=== PATIENT | female | born 1955 | race Caucasian/White ===

== ENCOUNTER 2017-07-31 21:46 | Emergency (ER) | payer MEDICARE, MEDICAID, SELFPAY ==
[2017-07-31 22:08] VITALS: BP 173/90; PULSE 103; RESP 18; TEMP 36.9; O2SAT 98
[2017-07-31 22:57] VITALS: PULSE 80
--- NOTE | 2017-08-01 00:01 | ED.LOWEXIN ---
HPI - Extremity Injury (Lower) General Chief Complaint: Extremity Injury, Lower Stated Complaint: LEFT FOOT TOE INJURY Time Seen by Provider: 07/31/17 21:55 Source: patient Mode of arrival: ambulatory Limitations: no limitations History of Present Illness HPI Narrative: Pleasant 62-year-old female with history of leukemia and type 2 diabetes presents to the emergency department with a laceration on the dorsum of her left great toe. She has a history of peripheral neuropathy and is unclear exactly how she cut her toe. She denies other injury. Her tetanus is current MD complaint: foot injury Onset (ago): hour(s) Type of Injury: laceration Place: home Severity: mild Related Data Previous Rx's Medication Instructions Recorded Diabetic Shoes ea TD QDAY #1 02/21/16 albuterol sulfate [Ventolin HFA] 0 puff INH Q4HP PRN #1 ea 07/22/16 simvastatin 20 mg PO QDAY #90 tab 08/07/16 indomethacin 25 mg PO BIDCC #30 cap 09/18/16 lisinopril 10 mg PO QDAY #90 tab 11/10/16 Glucose: Test Strips str SEE INSTRUCTIONS #200 12/24/16 meloxicam [Mobic] 15 mg PO BID #180 tab 02/24/17 metformin 1,000 mg PO BID #60 tab 04/05/17 gabapentin 300 mg capsule 300 mg PO BID #60 cap 07/20/17 glipizide 5 mg tablet 5 mg PO BID #60 tab 07/20/17 cephalexin [Keflex] 500 mg PO QID 7 Days #28 cap 07/31/17 Allergies Allergy/AdvReac Type Severity Reaction Status Date / Time latex Allergy Severe RASH Unverified 07/31/17 22:14 codeine Allergy Mild HEADACHE Unverified 07/31/17 22:14 adhesive AdvReac Mild IRRITATING, Unverified 07/31/17 22:14 USE PAPER TAPE hydrocodone AdvReac Mild NAUSEA, Unverified 07/31/17 22:14 HEADACHE tramadol AdvReac Mild NAUSEA, Unverified 07/31/17 22:14 HEADACHE cephalexin [CEPHALEXIN] AdvReac Unknown SEVERE Unverified 07/31/17 22:14 DIAHHREA oxycodone AdvReac Unknown NAUSEA/VOMI Unverified 07/31/17 22:14 TING novacaine Allergy Intermediate doen not Uncoded 07/31/17 22:14 work Review of Systems Review of Systems All systems reviewed & are unremarkable except as noted in HPI and below Constitutional Denies chills, Denies fever(s), Denies lethargy and Denies weakness Eyes Denies change in vision, Denies eye discharge, Denies irritation and Denies loss of vision ENT Ears, Nose, Mouth, and Throat: Denies change in voice, Denies neck pain and Denies sore throat Cardiovascular Denies chest pain, Denies irregular heart rhythm, Denies lightheadedness, Denies palpitations, Denies dyspnea, Denies dyspnea on exertion and Denies orthopnea Respiratory Denies cough, Denies dyspnea, Denies dyspnea on exertion and Denies wheezing Gastrointestinal Gastrointestinal: Denies abdominal pain, Denies change in bowel habits, Denies diarrhea, Denies nausea and Denies vomiting Genitourinary Denies hematuria, Denies flank pain, Denies urinary incontinence and Denies urinary urgency Musculoskeletal Denies joint swelling, Denies limited range of motion, Denies neck pain and Denies radiating pain into limb Integumentary/Breasts Denies pruritus, Denies erythema, Denies rash and Reports wounds Neurologic Denies confusion, Denies loss of vision and Denies weakness Psychiatric Denies anxiety, Denies confusion, Denies depression, Denies homicidal ideation and Denies suicidal ideation Endocrine Denies palpitations Hematologic/Lymphatic Denies easy bruising Allergic/Immunologic Denies wheezing PFSH Surgical History History of tonsillectomy Family History Mother Cancer Social History Smoking Status: Never smoker Exam Initial Vital Signs Initial Vital Signs: Vital Signs Temperature 98.5 F 07/31/17 22:08 Pulse Rate 103 H 07/31/17 22:08 Respiratory Rate 18 07/31/17 22:08 Blood Pressure 173/90 H 07/31/17 22:08 Pulse Oximetry 98 07/31/17 22:08 Const General: cooperative and well developed Nutritional Appearance: well nourished Orientation: alert, awake, oriented x3 and not confused HENIA Head: normocephalic and atraumatic Ears: external ears normal and TM's normal bilaterally Nose: external nose normal and No nasal discharge Face and sinus: sinuses nontender, face symmetric, no sinus tenderness and No dry mucous membranes Mouth: oral mucosae normal and moist mucous membranes Teeth and gingiva: dentition normal Throat: tonsils normal and uvula midline Eyes General: appearance normal, both eyes and all related structures Eyelids: eyelids normal Conjunctivae: conjunctivae normal Sclera: sclerae normal Pupils: PERRL EOM: EOM intact bilaterally Resp Effort & Inspection: normal respiratory effort, able to speak in complete sentences, no respiratory distress and no use of accessory muscles Auscultation: clear to auscultation bilaterally, no rales, no rhonchi and no wheezes GI Inspection: non-distended Palpation: soft, no hepatosplenomegaly, No guarding, No pulsatile mass and No tender Auscultation: normal bowel sounds Skin General: no rashes or lesions noted, No jaundice and No petechiae Trauma: laceration (On dorsum of left great toe. Closed, isolated neurovascularly intact. Full range of motion. 2 cm) Procedures Joint Aspiration/Injection Laceration 1: Site: lower extremity Side (If applicable): left Size (cm): 2 Description: linear Depth: simple, single layer Local Anesthetic: lidocaine 1% Amount of anesthesia used (mL): 3 Pre-repair: wound explored Skin layer closed with: nylon Size (cm): 4-0 Number of sutures: 3 Technique: simple, interrupted Course Orders Ordered: Discontinued Medications Cephalexin HCl (Keflex) 500 mg PO NOW ONE Stop: 07/31/17 23:53 Last Admin: 08/01/17 00:16 Dose: 500 mg Vital Signs - 8 hr 07/31/17 22:08 07/31/17 22:57 08/01/17 00:03 Temperature 98.5 F Pulse Rate 103 H 82 Pulse Rate [Left Dorsalis Pedis] 80 Respiratory Rate 18 18 Blood Pressure 173/90 H Blood Pressure [Left Wrist] 149/79 H Pulse Oximetry 98 96 Discharge Plan Departure Patient Disposition: Home, Self-Care Clinical Impression: Laceration Discharge Date/Time: 08/01/17 00:22 Interventions: ED Discharge Assessment Last Done: 08/01/17 00:21 Instructions: DI for Laceration Repair Activity Restrictions/Additional Instructions: Please keep the wound clean and dry to the best of your ability. Please monitor for signs of infection such as redness to the skin or increasing pain. Have the sutures removed by your doctor in about 7 days. If you are unable to get into your doctor, we would be happy to remove the sutures in that same timeframe. Your prescription was electronically transmitted to [facility] and [facility] is at your request Prescriptions: New cephalexin [Keflex] 500 mg capsule 500 mg PO QID 7 Days Qty: 28 RF: 0 No Action Diabetic Shoes TD QDAY Qty: 1 RF: 1 albuterol sulfate [Ventolin HFA] 90 MCG/PUFF HFA aerosol inhaler INH Q4HP PRNQty: 1 RF: 2 simvastatin 20 MG tablet 20 mg PO QDAY Qty: 90 RF: 3 indomethacin 25 MG capsule 25 mg PO BIDCC Qty: 30 RF: 0 lisinopril 10 MG tablet 10 mg PO QDAY Qty: 90 RF: 2 Glucose: Test Strips SEE INSTRUCTIONS Qty: 200 RF: 5 meloxicam [Mobic] 15 MG tablet 15 mg PO BID Qty: 180 RF: 3 metformin 1,000 MG tablet 1,000 mg PO BID Qty: 60 RF: 11 gabapentin [Neurontin] 300 mg capsule 300 mg PO BID Qty: 60 RF: 0 glipizide 5 mg tablet 5 mg PO BID Qty: 60 RF: 0 Referrals: Malou Calvin MD [Primary Care Provider] -
[2017-08-01 00:03] VITALS: BP 149/79; PULSE 82; RESP 18; O2SAT 96
[2017-08-01] MEDS: cephALEXin 250 MG CAPSULE 500 MG PO (00:16)
== END 2017-08-01 00:22 | disposition home or self-care (01) ==
PROVIDERS: Emergency Provider Emergency Medicine; PCP Family Medicine
DX: S91.312A Laceration without foreign body, left foot, initial encounter (principal)
CPT/HCPCS: 12001; 99283

== ENCOUNTER → 2017-08-30 10:29 | Outpatient (CLI) | payer MEDICARE, MEDICAID, SELFPAY ==
[2017-08-30 12:39] LABS: Alanine Aminotransferase 29 IU/L (9-52); Albumin 4.2 g/dL (3.5-5.0); Albumin Globulin Ratio 1.4 (1.0-2.8); Alkaline Phosphatase 81 U/L (38-126); Aspartate Aminotransferase 28 IU/L (14-36); BUN Creatinine Ratio 18.8 (6-22); Bilirubin Total 0.4 mg/dL (0.2-1.3); Blood Urea Nitrogen 15 mg/dL (7-17); Calcium 9.4 mg/dL (8.4-10.2); Carbon Dioxide 26 mmol/L (22-32); Chloride 92 mmol/L (98-107); Cholesterol 123 mg/dL (140-199); Estimated Glomerular Filt Rate > 60.0 mL/min (>60); Globulin 2.9 g/dL (1.7-4.1); Glucose 187 mg/dL (80-110); HDL Cholesterol 38 mg/dL (40-60); HEMOLYSIS < 15 (0-50); LDL Cholesterol Calculated 58 mg/dL (<100); Sodium 129 mmol/L (137-145); Total Protein 7.1 g/dL (6.3-8.2); Triglycerides 133 mg/dL (35-150)
[2017-08-30 12:43] LABS: Potassium 5.4 mmol/L (3.4-5.1)
[2017-08-30 15:29] LABS: Hemoglobin A1C% w Est Avg Glu 6.6 % (4.0-6.0)
== END ==
PROVIDERS: PCP Family Medicine; Visit Provider Internal Medicine
DX: E11.40 Type 2 diabetes mellitus with diabetic neuropathy, unspecified (principal)
CPT/HCPCS: 36415; 80053; 80061; 83036; 84443

== ENCOUNTER → 2017-10-08 10:22 | Outpatient (CLI) | payer MEDICARE, MEDICAID, SELFPAY ==
[2017-10-08 11:40] LABS: Hematocrit 38.8 % (36-46); Hemoglobin 12.4 g/dL (12.0-16.0); Mean Corpuscular Hemoglobin 26.2 PG (26-34); Mean Corpuscular Volume 81.9 fL (80-100); Platelet Count 408 X10^3/uL (150-400); Red Blood Cell Count 4.74 X10^6/uL (4.0-5.2); Red Cell Distribution Width 14.5 % (11.6-14.8); White Blood Cell Count 28.3 X10^3/uL (4.5-11.0)
[2017-10-08 11:41] LABS: Add Manual Diff / Slide Review YES
[2017-10-08 11:56] LABS: Alanine Aminotransferase 29 IU/L (9-52); Albumin 4.3 g/dL (3.5-5.0); Albumin Globulin Ratio 1.5 (1.0-2.8); Alkaline Phosphatase 83 U/L (38-126); Aspartate Aminotransferase 28 IU/L (14-36); Bilirubin Total 0.5 mg/dL (0.2-1.3); Blood Urea Nitrogen 16 mg/dL (7-17); Calcium 9.4 mg/dL (8.4-10.2); Carbon Dioxide 26 mmol/L (22-32); Chloride 95 mmol/L (98-107); Estimated Glomerular Filt Rate 55.8 mL/min (>60); Globulin 2.8 g/dL (1.7-4.1); Glucose 167 mg/dL (80-110); HEMOLYSIS < 15 (0-50); Potassium 4.8 mmol/L (3.4-5.1); Sodium 134 mmol/L (137-145); Total Protein 7.1 g/dL (6.3-8.2)
[2017-10-08 12:20] LABS: Neutrophils Absolute Manual 9339 /uL (3000-5900); Total Cells Counted 100
== END ==
PROVIDERS: PCP Family Medicine; Visit Provider Nurse Practitioner Gerontology
DX: C91.90 Lymphoid leukemia, unspecified not having achieved remission (principal)
CPT/HCPCS: 36415; 80053; 85025

== ENCOUNTER → 2018-03-15 11:25 | Outpatient (CLI) | payer MEDICARE, SELFPAY ==
[2018-03-15 12:08] LABS: Hematocrit 40.7 % (36-46); Hemoglobin 12.5 g/dL (12.0-16.0); Mean Corpuscular HGB Conc 30.7 % (30-36); Mean Corpuscular Volume 78.3 fL (80-100); Platelet Count 446 X10^3/uL (150-400); Red Blood Cell Count 5.19 X10^6/uL (4.0-5.2); Red Cell Distribution Width 16.1 % (11.6-14.8)
[2018-03-15 12:17] LABS: Hemoglobin A1C% w Est Avg Glu 7.2 % (4.0-6.0)
[2018-03-15 12:19] LABS: Add Manual Diff / Slide Review YES; White Blood Cell Count 76.2 X10^3/uL (4.5-11.0)
[2018-03-15 12:23] LABS: Alanine Aminotransferase 17 IU/L (9-52); Albumin 4.4 g/dL (3.5-5.0); Albumin Globulin Ratio 1.3 (1.0-2.8); Alkaline Phosphatase 99 U/L (38-126); Amylase 47 U/L (30-110); Aspartate Aminotransferase 28 IU/L (14-36); Bilirubin Total 0.4 mg/dL (0.2-1.3); Blood Urea Nitrogen 9 mg/dL (7-17); Calcium 9.3 mg/dL (8.4-10.2); Carbon Dioxide 25 mmol/L (22-32); Chloride 96 mmol/L (98-107); Estimated Glomerular Filt Rate > 60.0 mL/min (>60); Globulin 3.3 g/dL (1.7-4.1); Glucose 164 mg/dL (80-110); HEMOLYSIS < 15 (0-50); Potassium 4.6 mmol/L (3.4-5.1); Sodium 134 mmol/L (137-145); Total Protein 7.7 g/dL (6.3-8.2)
[2018-03-15 12:34] LABS: Anisocytosis 2+; Neutrophils Absolute Manual 8382 /uL (3000-5900); Poikilocytosis 1+; Total Cells Counted 100
[2018-03-15 12:40] LABS: Vitamin D 25 Hydroxy (D3) 16.9 ng/mL (30.0-100.0)
== END ==
PROVIDERS: PCP Student in an Organized Health Care Education/Training Program; Visit Provider Student in an Organized Health Care Education/Training Program
DX: C91.90 Lymphoid leukemia, unspecified not having achieved remission (principal); E11.9 Type 2 diabetes mellitus without complications; E55.9 Vitamin D deficiency, unspecified
CPT/HCPCS: 36415; 80053; 82150; 82306; 83036; 85025

== ENCOUNTER → 2018-05-09 14:21 | Oncology outpatient (ONC) | payer MEDICARE, SELFPAY ==
[2017-10-11 14:38] VITALS: BP 122/76; PULSE 90; RESP 18; TEMP 36.1; O2SAT 94
--- NOTE | 2017-10-11 14:43 | ONC.APRN.PN ---
Assessment and Plan (1) Chronic lymphocytic leukemia Onset Date: 11/26/14 Current visit: No Status: None 10/11/17 14:45 The patient is a 62 year old Female who is being seen in the clinic 10/11/2017. She carries a diagnosis of CLL with deletion 13q. Patient is status post first line therapy completed in February 2016 and presents today for her 1 year interval follow-up. Reassuringly on exam today she has no clinical signs or symptoms of disease recurrence. CBC does demonstrate an elevated white count at 28.3, patient's white count historically does remain elevated trending 12-13. However, the rest of her blood work looks very good specifically no anemia hemoglobin 12.4 hematocrit 38.8. Platelets within normal limits. Smear pending at time of dictation, I will follow. LDH not tested, has not been elevated in the past. She has no hepatosplenomegaly. RTC in 6 months for provider visit cbc cmp LDH. 10/11/17 14:48 - Time Spent with Patient 30 minutes PN -Subjective Interval history: The patient is a 62 year old Female who is being seen in the clinic 10/11/2017. She carries a diagnosis of CLL with deletion 13q. Patient is status post first line therapy completed in February 2016 and presents today for her 1 year interval follow-up. Since I saw her last, she has done well overall. Her only complaint is chronic lower back pain which is unchanged in character or location. She otherwise denies any recent illnesses, residual side effects of therapy. Patient denies any new fevers, chills, or night sweats. No change in activity tolerance. No unexplained weight loss. No new lumps or bumps. No new pain. Past Medical History The patient's past medical history is significant for: 1. CLL Diagnosis: 02/17/2013. Peripheral blood flow cytometry. Reporting an abnormal B cell population composed 44% of total white cells. IHC consistent with a B cell population: Positive for CD19, CD20, and CD2 (dim, subset of B cells). CD5. Negative for FMC7. 08/11/2013: Excisional biopsy lymph node. Pathology reporting atypical lymphoid infiltrate with IHC positive for CD20, CD23 (subset), Ki-67-12%. 06/09/2013: Bone Marrow Biopsy with Aspirate: Cellularity ~ 80-85%. Atypical lymphoid cells ~40%. Reticulin fibrosis 1+. Flow cytometry confirming abnormal mature B cell population with lambda surface light chain restriction. Low CD20, high CD5. Abnormal B cells representing 87% of lymphocytes and 36% of total viable leukocytes. Cytogenetics confirming deletion 13q. Addition of 3 and 7 also identified. FISH panel negative. Clinical Staging Workup: 2012. Clincal presention. Palpable adenopathy, right side of neck. Baseline WBC - 36,000 02/13/2013: CT Chest Abdomen, Pelvis: Bilateral inguinal and axillary adenopathy. Pathologically enlarged lymph nodes in the retroperitoneal, mesenteric, and mediastinal stations. Complex lobulated lesion right adrenal gland with associated calcifications. Spleen and liver normal size. Prognosis: GILL stage I Binet Stage B Treatment Recommendations: August-February 2016. Bendamustine and Rituxumab x 6 cycles. 06/12/2014. Hep B core AB: nonreactive. Hep B surface Ag: negative. Surveillence: 05/27/2015. Peripheral Flow Cytometry. No immunophenotypic evidence for CLL detected. 2. Diabetes type 2. 3. Hypertension. 4. Hyperlipidemia. 5. Chronic hyponatremia with her baseline sodium levels in the 130 range. Evaluation currently underway. 6. Anxiety. 7. Degenerative joint disease with chronic lower back pain. Results - Imaging Additional studies: Procedures Biopsy of lymphatic structure (08/11/13) Insertion of totally implantable vascular access device [VAD] (07/17/14) Other local excision or destruction of lesion or tissue of skin and subcutaneous tissue (08/11/13) Other soft tissue x-ray of chest wall (07/17/14) Home Medications and Allergies Home Medications Medication Instructions Recorded Confirmed Type Diabetic Shoes ea TD QDAY #1 02/21/16 08/30/17 Rx meloxicam [Mobic] 15 mg PO BID #180 tab 02/24/17 08/30/17 Rx metformin 1,000 mg PO BID #60 tab 04/05/17 08/30/17 Rx simvastatin 20 mg tablet 20 mg PO QDAY #90 tab 08/24/17 08/30/17 Rx fluticasone furoate 100 1 inhalation INHALATION DAILY #30 08/30/17 Rx mcg/actuation blister powder for each inhalation Glucose: Test Strips #1 ea 09/06/17 Rx fluconazole 150 mg tablet 150 mg PO ONCE #2 tab 09/30/17 Rx gabapentin 300 mg capsule 300 mg PO BID #60 cap 10/04/17 Rx canagliflozin 100 mg tablet 100 mg PO QAM #30 tab 10/11/17 Rx fluticasone furoate [Arnuity 1 inh INHALATION DAILY 10/11/17 10/11/17 History Ellipta] Allergies Allergy/AdvReac Type Severity Reaction Status Date / Time latex Allergy Severe RASH Verified 08/30/17 09:25 codeine Allergy Mild HEADACHE Verified 08/30/17 09:25 adhesive AdvReac Mild IRRITATING, Verified 08/30/17 09:25 USE PAPER TAPE hydrocodone AdvReac Mild NAUSEA, Verified 08/30/17 09:25 HEADACHE tramadol AdvReac Mild NAUSEA, Verified 08/30/17 09:25 HEADACHE cephalexin [CEPHALEXIN] AdvReac Unknown SEVERE Verified 08/30/17 09:25 DIAHHREA oxycodone AdvReac Unknown NAUSEA/VOMI Verified 08/30/17 09:25 TING novacaine Allergy Intermediate doen not Uncoded 08/30/17 09:25 work Exam Vital signs: Last Vital Signs Temp 97.0 F L 10/11/17 14:38 Pulse 90 10/11/17 14:38 Resp 18 10/11/17 14:38 BP 122/76 H 10/11/17 14:38 Pulse Ox 94 10/11/17 14:38 - Constitutional positive no acute distress, positive obese - Routine HEENT Exam Head: Present: normocephalic, atraumatic Eye: Present: conjunctivae pink. Absent: conjunctival icterus, scleral injection ENT: Present: mucous membranes moist, oropharynx clear - Routine Neck Exam Present: supple. Absent: lymphadenopathy - Routine Chest/Breast/Axilla Exam Axillae: Absent: lymphadenopathy, mass, tenderness - Routine Respiratory Exam Present: Clear to auscultation bilaterally. Absent: rales, rhonchi, wheezes - Routine Cardiovascular Exam Present: RRR, S1, S2. Absent: murmur, gallop, rubs, JVD - Routine Abdominal Exam Present: soft, normoactive bowel sounds. Absent: tenderness, distended, organomegaly, mass - Routine Extremities Exam Absent: edema, calf tenderness - Routine Skin Exam Present: intact, normal turgor. Absent: petechiae, rash - Routine Neurological Exam Present: alert, oriented X3 - Routine Psychiatric Exam Present: normal affect
--- NOTE | 2018-03-23 13:39 | PC.NURSE ---
Pt called stating that Dr Caballero had told based on labs, that she was dehydrated and needed fluids. I told her that if Dr Caballero wanted her to have fluids that he would need to order them. She has an appt with Dr Almaguer on Wednesday but it will be to late in the day for her to receive fluids after her appt. She said she would try to call Dr Caballero and see about an order.
[2018-03-25 16:13] VITALS: BP 133/61; PULSE 80; RESP 18; TEMP 36.7; O2SAT 95
--- NOTE | 2018-03-25 16:14 | ONC.PN ---
PN -Subjective Interval history: She has been in wheel chair since Dec 2017 when she developed watery diarrhea that mostly happen at night. She thought that might be due to the use of Invokana for her diabetes. She therefore stopped Invokana, but diarrhea did not improved much. Recently, she was seen by her PCP Dr. Eligio Caballero at [facility]. Insulin use was discussed with the patient. However, patient is resistant. Patient underwent laboratory tests that showed WBC 76.2, HGB 12.5, HCT 40.7, MCV 7.3, PLT 446. Dr. Eligio Caballero advised her to follow up here at [facility]. Today, she said that her diarrhea seems to be better, but she feels very tired. No fever. She has not notices any new lumps or bumps. She is hungery, but after eating she has excessive diarrhea. She has diabetes and has peripheral neuropathy. She was last seen here about 6 month ago here. active surveillance was recommended. Oncology History: 1. In 2012, she presented with palpable adenopathy, right side of neck. Baseline WBC - 36,000. 2. On 02/17/2013 by peripheral blood flow cytometry, reporting an abnormal B cell population composed 44% of total white cells. IHC consistent with a B cell population: Positive for CD19, CD20, and CD2 (dim, subset of B cells). CD5. Negative for FMC7. 3. On 06/09/2013, BMA/Bx : cellularity ~ 80-85%. Atypical lymphoid cells ~40%. Reticulin fibrosis 1+. Flow cytometry confirming abnormal mature B cell population with lambda surface light chain restriction. Low CD20, high CD5. Abnormal B cells representing 87% of lymphocytes and 36% of total viable leukocytes. Cytogenetics confirming deletion 13q. Addition of 3 and 7 also identified. FISH panel negative. On 08/11/2013, excisional biopsy of right supraclavicular lymph node showed atypical lymphoid infiltrate with IHC positive for CD20, CD23 (subset), Ki-67-12%. 4. On 02/13/2013: CT Chest Abdomen, Pelvis: Bilateral inguinal and axillary adenopathy. Pathologically enlarged lymph nodes in the retroperitoneal, mesenteric, and mediastinal stations. Complex lobulated lesion right adrenal gland with associated calcifications. Spleen and liver normal size. GILL stage I, Binet Stage B 5. She underwent Bendamustine and Rituxumab x 6 cycles from August-February 2016. 6. On 05/27/2015. Peripheral Flow Cytometry. No immunophenotypic evidence for CLL detected. - Patient Self-Reported Symptoms SR Gastrointestinal issues: Diarrhea SR Neuro issues: Difficulty balancing - Additional ROS All systems PM: reviewed and no additional remarkable complaints except as stated Home Medications and Allergies Home Medications Medication Instructions Recorded Confirmed Type Diabetic Shoes ea TD QDAY #1 02/21/16 03/15/18 Rx meloxicam [Mobic] 15 mg PO BID #180 tab 02/24/17 03/15/18 Rx metformin 1,000 mg PO BID #60 tab 04/05/17 03/15/18 Rx Glucose: Test Strips #1 ea 09/06/17 03/15/18 Rx gabapentin 300 mg capsule 300 mg PO BID #60 cap 03/14/18 03/15/18 Rx albuterol sulfate HFA 90 1 puff INHALATION Q6H PRN #6.7 gram 03/15/18 Rx mcg/actuation aerosol inhaler Allergies Allergy/AdvReac Type Severity Reaction Status Date / Time latex Allergy Severe RASH Verified 03/15/18 10:32 codeine Allergy Mild HEADACHE Verified 03/15/18 10:32 adhesive AdvReac Mild IRRITATING, Verified 03/15/18 10:32 USE PAPER TAPE hydrocodone AdvReac Mild NAUSEA, Verified 03/15/18 10:32 HEADACHE tramadol AdvReac Mild NAUSEA, Verified 03/15/18 10:32 HEADACHE cephalexin [CEPHALEXIN] AdvReac Unknown SEVERE Verified 03/15/18 10:32 DIAHHREA oxycodone AdvReac Unknown NAUSEA/VOMI Verified 03/15/18 10:32 TING novacaine Allergy Intermediate doen not Uncoded 03/15/18 10:32 work Exam Vital signs: Last Vital Signs Temp 98.1 F 03/25/18 16:13 Pulse 80 03/25/18 16:13 Resp 18 03/25/18 16:13 BP 133/61 03/25/18 16:13 Pulse Ox 95 03/25/18 16:13 ECOG 1 Narrative: Constitutional: WDWN, NAD, mobidly obese, in wheelchair, accompanied by her daughter, pleasant and cooperative. HEENT: NCAT, EOMI, PERRLA, anicteric sclera, no hearing difficulty; Oral mucus membrane moist and without ulcers. Neck: Supple, symmetrical, and tracheal midline; No palpable thyromegaly and no palpable lymph nodes. Respiratory: No use of accessory muscles. Clear to auscultation, and no wheezes or rales or rubs. Cardiovascular: Regular rate and rhythm, S1 and S2 normal, no murmurs gallops or rubs. No JVD. No pitting edema of lower extremities. Abdomen: Soft, nontender, non-distended, bowel sounds normal, no palpable organomegaly, no hernia, no palpable masses. Lower extremities: No palpable pedal edema. Lymphatic: no palpable lymph nodes in the neck; but palpable nodes about 2-3 cm in both axillae. Musculoskeletal: normal gait and station, no clubbing, no cyanosis, no pitting edema. Skin: no rashes, no ulcers, no petechiae Neurological: Awake and alert and oriented x3. CN II-XII grossly intact. No focal motor or sensory deficit. Psychiatric: Good judgment, good insight, normal affect, normal thought process, cooperative, no depression, no anxiety. Results - Labs Reviewed. See HPI. - Imaging Additional studies: Procedures Biopsy of lymphatic structure (08/11/13) Insertion of totally implantable vascular access device [VAD] (07/17/14) Other local excision or destruction of lesion or tissue of skin and subcutaneous tissue (08/11/13) Other soft tissue x-ray of chest wall (07/17/14) Assessment and Plan (1) Chronic lymphocytic leukemia Problem details: 1. Presented with palpable adenopathy with WBC - 36,000 in 2012. Diagnosed with CLL ( 02/17/2013) based on peripheral blood flow cytometry. Cytogenetics: 46, XX[20], FISH-CLL normal panel. On 08/11/2013, excisional biopsy of right supraclavicular lymph node showed atypical lymphoid infiltrate with IHC positive for CD20, CD23 (subset), Ki-67-12%. BMA/Bx (06/08/2014) was involved with abnormal cytogenetics: 46, XX, add(3)(p26)[2]/46, idem, del(13)(q12q22)[3]/46, idem, add(7)(p22)[2]/46, XX[10]. 2. On 02/13/2013 CT Chest Abdomen, Pelvis: Bilateral inguinal and axillary adenopathy. Pathologically enlarged lymph nodes in the retroperitoneal, mesenteric, and mediastinal stations. Complex lobulated lesion right adrenal gland with associated calcifications. Spleen and liver normal size. GILL stage I, Binet Stage B 3. Bendamustine and Rituxumab x 6 cycles from August-February 2016. Assessment: Patient has a progressively worsening lymphocytosis, palpable group of lymph nodes in bilateral axilla measuring 2-3 cm each. I discussed with the patient that CLL usually it is a chronic indolent lymphoma. However CLL also can undergo evolution especially acquirement of 17p deletion/p53 mutation which usually indicates a poor prognosis. I talked with the patient that I will proceed with re-evaluation of her CLL status. Plan: 1. CT NCAP w/contrast 2. PB: flowcytometry, cytogenetics, IgVH mutation analysis, FISH lymphoma panel 3. RTC after the results are available for review. (2) Diarrhea Assessment and Plan: I talked with the patient that in my opinion, her chronic diarrhea most likely is related to her diabetes. I encouraged the patient continue follow-up with her primary care provider for more strict diabetic control. (3) Type 2 diabetes mellitus Assessment and Plan: being followed by Basim Camarillo at [facility] (4) Peripheral sensory neuropathy due to type 2 diabetes mellitus Assessment and Plan: being followed by Basim Camarillo at [facility].
--- NOTE | 2018-03-25 16:26 | P.PNONC_ITS ---
PN -Subjective Interval history: She has been in wheel chair since Dec 2017 when she developed watery diarrhea that mostly happen at night. She thought that might be due to the use of Invokana for her diabetes. She therefore stopped Invokana, but diarrhea did not improved much. Recently, she was seen by her PCP Dr. Eligio Caballero at [facility]. Insulin use was discussed with the patient. However, patient is resistant. Patient underwent laboratory tests that showed WBC 76.2, HGB 12.5, HCT 40.7, MCV 7.3, PLT 446. Dr. Eligio Caballero advised her to follow up here at [facility]. Today, she said that her diarrhea seems to be better, but she feels very tired. No fever. She has not notices any new lumps or bumps. She is hungery, but after eating she has excessive diarrhea. She has diabetes and has peripheral neuropathy. She was last seen here about 6 month ago here. active surveillance was recommended. Oncology History: 1. In 2012, she presented with palpable adenopathy, right side of neck. Baseline WBC - 36,000. 2. On 02/17/2013 by peripheral blood flow cytometry, reporting an abnormal B cell population composed 44% of total white cells. IHC consistent with a B cell population: Positive for CD19, CD20, and CD2 (dim, subset of B cells). CD5. Negative for FMC7. 3. On 06/09/2013, BMA/Bx : cellularity ~ 80-85%. Atypical lymphoid cells ~40%. Reticulin fibrosis 1+. Flow cytometry confirming abnormal mature B cell population with lambda surface light chain restriction. Low CD20, high CD5. Abnormal B cells representing 87% of lymphocytes and 36% of total viable leukocytes. Cytogenetics confirming deletion 13q. Addition of 3 and 7 also identified. FISH panel negative. On 08/11/2013, excisional biopsy of right supraclavicular lymph node showed atypical lymphoid infiltrate with IHC positive for CD20, CD23 (subset), Ki-67-12%. 4. On 02/13/2013: CT Chest Abdomen, Pelvis: Bilateral inguinal and axillary adenopathy. Pathologically enlarged lymph nodes in the retroperitoneal, mesenteric, and mediastinal stations. Complex lobulated lesion right adrenal gland with associated calcifications. Spleen and liver normal size. GILL stage I , Binet Stage B 5. She underwent Bendamustine and Rituxumab x 6 cycles from August-February 2016. 6. On 05/27/2015. Peripheral Flow Cytometry. No immunophenotypic evidence for CLL detected. - Patient Self-Reported Symptoms SR Gastrointestinal issues: Diarrhea SR Neuro issues: Difficulty balancing - Additional ROS All systems PM: reviewed and no additional remarkable complaints except as stated Home Medications and Allergies Home Medications Medication Instructions Recorded Confirmed Type Diabetic Shoes ea TD QDAY #1 02/21/16 03/15/18 Rx meloxicam [Mobic] 15 mg PO BID #180 tab 02/24/17 03/15/18 Rx metformin 1,000 mg PO BID #60 tab 04/05/17 03/15/18 Rx Glucose: Test Strips #1 ea 09/06/17 03/15/18 Rx gabapentin 300 mg capsule 300 mg PO BID #60 cap 03/14/18 03/15/18 Rx albuterol sulfate HFA 90 1 puff INHALATION Q6H PRN #6.7 gram 03/15/18 Rx mcg/actuation aerosol inhaler Allergies Allergy/AdvReac Type Severity Reaction Status Date / Time latex Allergy Severe RASH Verified 03/15/18 10:32 codeine Allergy Mild HEADACHE Verified 03/15/18 10:32 adhesive AdvReac Mild IRRITATING, Verified 03/15/18 10:32 USE PAPER TAPE hydrocodone AdvReac Mild NAUSEA, Verified 03/15/18 10:32 HEADACHE tramadol AdvReac Mild NAUSEA, Verified 03/15/18 10:32 HEADACHE cephalexin [CEPHALEXIN] AdvReac Unknown SEVERE Verified 03/15/18 10:32 DIAHHREA oxycodone AdvReac Unknown NAUSEA/VOMI Verified 03/15/18 10:32 TING novacaine Allergy Intermediate doen not Uncoded 03/15/18 10:32 work Exam Vital signs: Last Vital Signs Temp 98.1 F 03/25/18 16:13 Pulse 80 03/25/18 16:13 Resp 18 03/25/18 16:13 BP 133/61 03/25/18 16:13 Pulse Ox 95 03/25/18 16:13 ECOG 1 Narrative: Constitutional: WDWN, NAD, mobidly obese, in wheelchair, accompanied by her daughter, pleasant and cooperative. HEENT: NCAT, EOMI, PERRLA, anicteric sclera, no hearing difficulty; Oral mucus membrane moist and without ulcers. Neck: Supple, symmetrical, and tracheal midline; No palpable thyromegaly and no palpable lymph nodes. Respiratory: No use of accessory muscles. Clear to auscultation, and no wheezes or rales or rubs. Cardiovascular: Regular rate and rhythm, S1 and S2 normal, no murmurs gallops or rubs. No JVD. No pitting edema of lower extremities. Abdomen: Soft, nontender, non-distended, bowel sounds normal, no palpable organomegaly, no hernia, no palpable masses. Lower extremities: No palpable pedal edema. Lymphatic: no palpable lymph nodes in the neck; but palpable nodes about 2-3 cm in both axillae. Musculoskeletal: normal gait and station, no clubbing, no cyanosis, no pitting edema. Skin: no rashes, no ulcers, no petechiae Neurological: Awake and alert and oriented x3. CN II-XII grossly intact. No focal motor or sensory deficit. Psychiatric: Good judgment, good insight, normal affect, normal thought process , cooperative, no depression, no anxiety. Results - Labs Reviewed. See HPI. - Imaging Additional studies: Procedures Biopsy of lymphatic structure (08/11/13) Insertion of totally implantable vascular access device [VAD] (07/17/14) Other local excision or destruction of lesion or tissue of skin and subcutaneous tissue (08/11/13) Other soft tissue x-ray of chest wall (07/17/14) Assessment and Plan (1) Chronic lymphocytic leukemia Problem details: 1. Presented with palpable adenopathy with WBC - 36,000 in 2012. Diagnosed with CLL ( 02/17/2013) based on peripheral blood flow cytometry. Cytogenetics: 46, XX [20], FISH-CLL normal panel. On 08/11/2013, excisional biopsy of right supraclavicular lymph node showed atypical lymphoid infiltrate with IHC positive for CD20, CD23 (subset), Ki-67-12%. BMA/Bx (06/08/2014) was involved with abnormal cytogenetics: 46, XX, add(3)(p26)[2]/46, idem, del(13)(q12q22)[3]/ 46, idem, add(7)(p22)[2]/46, XX[10]. 2. On 02/13/2013 CT Chest Abdomen, Pelvis: Bilateral inguinal and axillary adenopathy. Pathologically enlarged lymph nodes in the retroperitoneal, mesenteric, and mediastinal stations. Complex lobulated lesion right adrenal gland with associated calcifications. Spleen and liver normal size. GILL stage I , Binet Stage B 3. Bendamustine and Rituxumab x 6 cycles from August-February 2016. Assessment: Patient has a progressively worsening lymphocytosis, palpable group of lymph nodes in bilateral axilla measuring 2-3 cm each. I discussed with the patient that CLL usually it is a chronic indolent lymphoma. However CLL also can undergo evolution especially acquirement of 17p deletion/p53 mutation which usually indicates a poor prognosis. I talked with the patient that I will proceed with re-evaluation of her CLL status. Plan: 1. CT NCAP w/contrast 2. PB: flowcytometry, cytogenetics, IgVH mutation analysis, FISH lymphoma panel 3. RTC after the results are available for review. (2) Diarrhea Assessment and Plan: I talked with the patient that in my opinion, her chronic diarrhea most likely is related to her diabetes. I encouraged the patient continue follow-up with her primary care provider for more strict diabetic control. (3) Type 2 diabetes mellitus Assessment and Plan: being followed by Basim Camarillo at [facility] (4) Peripheral sensory neuropathy due to type 2 diabetes mellitus Assessment and Plan: being followed by Basim Camarillo at [facility].
--- NOTE | 2018-03-28 12:02 | ONC.SCHED ---
LABS: [id number] ALL MCR OK PER CODECORRECT
[2018-03-28 15:38] LABS: Hematocrit 37.8 % (36-46); Hemoglobin 11.3 g/dL (12.0-16.0); Mean Corpuscular Hemoglobin 23.6 PG (26-34); Mean Corpuscular Volume 78.8 fL (80-100); Platelet Count 537 X10^3/uL (150-400)
[2018-03-28 15:42] LABS: Add Manual Diff / Slide Review YES; White Blood Cell Count 98.7 X10^3/uL (4.5-11.0)
[2018-03-28 15:47] LABS: BUN Creatinine Ratio 11.1 (6-22); Blood Urea Nitrogen 10 mg/dL (7-17); Estimated Glomerular Filt Rate > 60.0 mL/min (>60)
[2018-03-28 16:17] LABS: Anisocytosis 1+; Hypochromasia 1+; Microcytosis 1+
--- NOTE | 2018-03-31 11:13 | PC.NURSE ---
This pt has a CT scan scheduled for 04/01. She had mentioned to you that she would like something to take prior to the scan for anxiety. If you provided the drug, dose, sig and amount I would be happy to call this in for her.
--- NOTE | 2018-03-31 12:17 | ONC.SCHED ---
PATHOLOGY PROGRESS: AWAIT CLL AND IGVH RESULTS
--- NOTE | 2018-04-05 10:44 | PC.NURSE ---
Called in Lorazepam 1 mg po to take prior to CT scan into [facility]. Left pt a message that the script was called in and that she needs to call diagnostic imaging at [facility] to reschedule her exam that she cancelled last Saturday 04/01.
[2018-04-12 11:21] LABS: Miscellaneous to LabCorp SEE SEPERATE REPORT
== END ==
PROVIDERS: Internal Medicine Hematology & Oncology; PCP Family Medicine; Visit Provider Nurse Practitioner Gerontology
DX: Z08 Encounter for follow-up examination after completed treatment for malignant neoplasm (principal); Z85.6 Personal history of leukemia; K52.9 Noninfective gastroenteritis and colitis, unspecified; E11.42 Type 2 diabetes mellitus with diabetic polyneuropathy; Z79.84 Long term (current) use of oral hypoglycemic drugs
CPT/HCPCS: 36415; 81263; 82565; 84520; 85025; 88271; 88275; 99214; 99215

== ENCOUNTER 2018-05-18 09:22 | Emergency (ER) | payer MEDICARE, SELFPAY ==
[2018-05-18 09:26] VITALS: BP 136/80; PULSE 110; RESP 22; TEMP 35.7; O2SAT 97
[2018-05-18] MEDS: ALBUTEROL/IPRATROPIUM 3 ML AMPUL INH (09:47)
[2018-05-18 09:48] VITALS: PULSE 105; RESP 20; O2SAT 96
--- NOTE | 2018-05-18 11:05 | ED.URI ---
HPI - URI/Sore Throat General Chief Complaint: Upper Respiratory Symptoms Stated Complaint: Breathing treament Time Seen by Provider: 05/18/18 10:56 Source: patient Mode of arrival: wheelchair (motorized.) Limitations: no limitations History of Present Illness HPI Narrative: This is a 63-year-old pleasant female comes to the ER for shortness of breath. Patient states yesterday she was cleaning her house and sprayed with febreeze. She usually has to leave the room immediately but she inhaled some and started having cough and shortness of breath. Patient states that this happens fairly regularly when she does this. 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 She has known asthma, she also has known ischemia. Patient states that she has not had any fevers or chills. Maybe some very mild rhinorrhea but no real nasal congestion but she is concerned about. The patient has had a nonproductive cough since then. She has done several treatments of her albuterol at home but states it did not really resolve it. She rested overnight and then decided to come in today because she continued to have symptoms. Patient denies any chest pain, she does not feel short of breath at all after her breathing treatment. She states that her symptoms have improved significantly. Patient does not normally use a steroid inhaler although she was prescribed in the past but felt that caused pain in her lungs. She has not had any swelling in her lower extremities. Related Data Home Medications Medication Instructions Recorded Confirmed canagliflozin [Invokana] 100 mg PO QAM 05/18/18 05/18/18 fluticasone furoate [Arnuity 1 puff INHALATION DAILY 05/18/18 05/18/18 Ellipta] simvastatin 20 mg PO DAILY 05/18/18 05/18/18 Previous Rx's Medication Instructions Recorded Diabetic Shoes ea TD QDAY #1 02/21/16 Glucose: Test Strips #1 ea 09/06/17 albuterol sulfate HFA 90 1 puff INHALATION Q6H PRN #6.7 gram 03/15/18 mcg/actuation aerosol inhaler meloxicam 15 mg tablet 15 mg PO BID #180 tab 04/08/18 metformin 1,000 mg tablet 1,000 mg PO BID #60 tab 04/11/18 gabapentin 300 mg capsule 300 mg PO BID #180 cap 05/09/18 Allergies Allergy/AdvReac Type Severity Reaction Status Date / Time latex Allergy Severe RASH Verified 03/15/18 10:32 codeine Allergy Mild HEADACHE Verified 03/15/18 10:32 procaine AdvReac Intermediate does not Verified 05/18/18 09:47 work adhesive AdvReac Mild IRRITATING, Verified 03/15/18 10:32 USE PAPER TAPE hydrocodone AdvReac Mild NAUSEA, Verified 03/15/18 10:32 HEADACHE tramadol AdvReac Mild NAUSEA, Verified 03/15/18 10:32 HEADACHE cephalexin [CEPHALEXIN] AdvReac Unknown SEVERE Verified 03/15/18 10:32 DIAHHREA oxycodone AdvReac Unknown NAUSEA/VOMI Verified 03/15/18 10:32 TING Review of Systems Review of Systems ROS Unobtainable: All systems reviewed & are unremarkable except as noted in HPI and below Constitutional Denies chills and Denies fever(s) ENT Ears, Nose, Mouth, and Throat: Reports nasal congestion (mild) Cardiovascular Denies chest pain, Denies irregular heart rhythm, Denies leg edema, Denies lightheadedness, Denies palpitations, Reports dyspnea (improved) and Denies orthopnea Respiratory Denies change in phlegm color, Denies chest congestion, Reports cough, Denies hemoptysis, Denies excessive phlegm production, Denies pain on inspiration, Denies pain with cough, Reports dyspnea (improved), Denies stridor and Reports wheezing Gastrointestinal Gastrointestinal: Denies abdominal pain, Denies change in bowel habits, Denies diarrhea, Denies nausea and Denies vomiting Genitourinary Denies hematuria, Denies urinary frequency, Denies flank pain and Denies urinary urgency Endocrine Denies palpitations Allergic/Immunologic Reports wheezing [facility] Medical History Arthritis (Chronic) Asthma (Chronic) Degenerative joint disease involving multiple joints (Chronic) Diabetes mellitus (Chronic 2004) Hyperlipidemia (Chronic) Hypertension (Chronic) Low grade B-cell lymphoma (Chronic) Morbid obesity (Chronic) 3 para 3 (Resolved) Peritonitis (Resolved) Surgical History Anesthesia (Resolved) Encounter for insertion of venous access port (Resolved) History of delivery (Resolved 1987) History of cholecystectomy (Resolved 1984) History of hernia repair (Resolved 1988) History of lymph node biopsy (Resolved 07/2013) History of tonsillectomy (Resolved) History of tubal ligation (Resolved) Status post laser cataract surgery of both eyes (Resolved) Family History Mother Cancer Family/Other Leukemia Father No problems noted. Social History marital status: Smoking Status: Former smoker alcohol intake: never substance use type: does not use Social History marital status: Smoking Status: Former smoker alcohol intake: never substance use type: does not use Exam Narrative Exam Narrative: GENERAL: Alert and oriented x three, Obese, well-appearing female in mild distress. HEENT: Head normocephalic, atraumatic, EOMI, pupils reactive, face symmetric, moist mucous membranes NECK: Supple, full range of motion CARDIOVASCULAR: Regular rate and rhythm without murmurs, rubs or gallops. RESPIRATORY: Breath sounds equal bilaterally, no wheezes rales or rhonchi. No tachypnea, no accessory muscle use. Patient speaks in full sentences. Patient was evaluated after breathing treatment. ABDOMEN: Soft, nontender. Normoactive bowel sounds all 4 quadrants. No guarding or rebound, rigidity, no mass : No CVA tenderness EXTREMITIES: Normal range of motion, no clubbing or edema. Neurovascularly intact NEUROLOGICAL: Cranial nerves II through XII grossly intact. Moving all extremities SKIN: Warm, dry, no petechiae, no rashes or lesions. Initial Vital Signs Initial Vital Signs: Vital Signs Temperature 96.3 F L 05/18/18 09:26 Pulse Rate 110 H 05/18/18 09:26 Respiratory Rate 22 05/18/18 09:26 Blood Pressure 136/80 05/18/18 09:26 Pulse Oximetry 97 05/18/18 09:26 Course Orders Ordered: Discontinued Medications Albuterol/Ipratropium (Duoneb) 3 ml INH NOW ONE Stop: 05/18/18 09:47 Last Admin: 05/18/18 09:47 Dose: 3 ml Vital Signs - 8 hr 05/18/18 11:26 Pulse Rate 90 Respiratory Rate 19 Blood Pressure 141/72 H Pulse Oximetry 92 MDM - URI/Sore Throat MDM Narrative Medical decision making narrative: I discussed with patient she had a very specific environmental trigger we discussed doing a chest x-ray but she defers at this time and I am in agreement as she has a clear onset and cause. That was improving mildly with treatments at home but significantly after nebulized treatment. Patient does not feel that she needs any steroids at this time. Peak flow did improve from 200-350 after her neb treatment. Patient states she has plenty of albuterol at home. She uses a motorized wheelchair and feels comfortable returning home in her motorized wheelchair. Discharge Plan Departure Patient Disposition: Home Clinical Impression: Asthma exacerbation Discharge Date/Time: 05/18/18 11:26 Interventions: ED Discharge Assessment Last Done: 05/18/18 11:26 Instructions: Asthma -- Adult Activity Restrictions/Additional Instructions: Follow up with your primary care physician for recheck in the next 3-5 days if your symptoms are not totally resolved. Continue your home medications as prescribed including albuterol 2-4 puffs every 4 hr as needed for symptoms. Try to avoid environmental triggers as best as you can. Return to the ER for worsening symptoms, new fevers, new chest pain, shortness of breath, productive cough, swelling in her lower extremities or other new or concerning symptoms. Prescriptions: No Action Diabetic Shoes TD QDAY Qty: 1 RF: 1 Glucose: Test Strips .Route .MEDSUPPLY Qty: 1 RF: 5 albuterol sulfate [Ventolin HFA] 90 mcg/actuation HFA aerosol inhaler 1 puff INHALATION Q6H PRN (Reason: shortness of breath) Qty: 6.7 RF: 2 meloxicam [Mobic] 15 mg tablet 15 mg PO BID Qty: 180 RF: 1 metformin 1,000 mg tablet 1,000 mg PO BID Qty: 60 RF: 11 gabapentin [Neurontin] 300 mg capsule 300 mg PO BID Qty: 180 RF: 1 simvastatin 20 mg tablet 20 mg PO DAILY RF: 0 Invokana 100 mg tablet 100 mg PO QAM RF: 0 Arnuity Ellipta 100 mcg/actuation blister with device 1 puff Inhalation DAILY RF: 0 Referrals: Eligio Caballero MD [Primary Care Provider] -
[2018-05-18 11:26] VITALS: BP 141/72; PULSE 90; RESP 19; O2SAT 92
== END 2018-05-18 11:26 | disposition home or self-care (01) ==
PROVIDERS: Emergency Provider Emergency Medicine; PCP Student in an Organized Health Care Education/Training Program
DX: J45.901 Unspecified asthma with (acute) exacerbation (principal)
CPT/HCPCS: 94150; 94640; 99282; 99283

== ENCOUNTER 2018-12-03 09:29 | Emergency (ER) | payer MEDICARE, OTHER, MEDICAID, SELFPAY ==
[2018-12-03 09:37] VITALS: BP 156/68; PULSE 93; RESP 16; TEMP 37.1; O2SAT 97
--- NOTE | 2018-12-03 09:38 | ED.ASTHMA ---
HPI - Asthma General Chief Complaint: Shortness of Breath/Dyspnea Stated Complaint: asthma exacerbation Time Seen by Provider: 12/03/18 09:35 Source: patient, EMS and old records reviewed Mode of arrival: EMS Limitations: no limitations History of Present Illness HPI Narrative: Patient is a 63-year-old female with history of asthma and leukemia presenting with increasing shortness of breath. She says she has had difficulty lying flat at night to sleep. It has been progressively getting worse over last 2 days. This morning was much worse 911 was called she was given albuterol by EMS and improved significantly. She denies any cough or fever. She does feel like her chest is tight. MD complaint: shortness of breath Associated symptoms: none Related Data Home Medications Medication Instructions Recorded Confirmed loperamide 2 mg capsule 2 mg PO Q2-4H PRN 05/25/18 08/11/18 Previous Rx's Medication Instructions Recorded Diabetic Shoes ea TD QDAY #1 02/21/16 Glucose: Test Strips #1 ea 09/06/17 albuterol sulfate 90 mcg/actuation 1 puff INHALATION Q6H PRN #6.7 gram 03/15/18 aerosol inhaler gabapentin 300 mg capsule 300 mg PO TID #270 cap 05/25/18 lorazepam 1 mg tablet 1 mg PO BID-TID PRN #60 tab 05/25/18 ondansetron 4 mg disintegrating 4 mg PO Q6-8H PRN #60 tab 06/02/18 tablet Powered wheel chair #1 ea 07/21/18 Depends Incontinence Undergarment #120 each 08/17/18 meloxicam 15 mg tablet 15 mg PO BID #180 tab 08/24/18 furosemide [Lasix] 20 mg PO QAM #3 tab 12/03/18 Allergies Allergy/AdvReac Type Severity Reaction Status Date / Time latex Allergy Severe RASH Verified 08/11/18 14:34 codeine Allergy Mild HEADACHE Verified 08/11/18 14:34 procaine AdvReac Intermediate does not Verified 08/11/18 14:34 work adhesive AdvReac Mild IRRITATING, Verified 08/11/18 14:34 USE PAPER TAPE hydrocodone AdvReac Mild NAUSEA, Verified 08/11/18 14:34 HEADACHE tramadol AdvReac Mild NAUSEA, Verified 08/11/18 14:34 HEADACHE cephalexin [CEPHALEXIN] AdvReac Unknown SEVERE Verified 08/11/18 14:34 DIAHHREA oxycodone AdvReac Unknown NAUSEA/VOMI Verified 08/11/18 14:34 TING Review of Systems Review of Systems ROS Unobtainable: All systems reviewed & are unremarkable except as noted in HPI and below Constitutional Constitutional: Denies chills, Denies fever(s), Denies lethargy and Denies weakness Cardiovascular Cardiovascular: Denies chest pain, Denies irregular heart rhythm, Denies lightheadedness, Denies palpitations and Denies orthopnea Respiratory Respiratory: Reports as per HPI Gastrointestinal Gastrointestinal: Denies abdominal pain, Denies change in bowel habits, Denies diarrhea, Denies nausea and Denies vomiting Genitourinary Genitourinary: Denies hematuria, Denies flank pain, Denies urinary incontinence and Denies urinary urgency Musculoskeletal Musculoskeletal: Denies back pain, Denies muscle weakness, Denies numbness and Denies tingling Integumentary/Breasts Skin/Breast: Denies pruritus, Denies erythema, Denies rash and Denies wounds Neurologic Neurologic: Denies numbness, Denies tingling and Denies weakness Endocrine Endocrine: Denies palpitations Exam Initial Vital Signs Initial Vital Signs: Vital Signs Temperature 98.7 F 12/03/18 09:37 Pulse Rate 93 H 12/03/18 09:37 Respiratory Rate 16 12/03/18 09:37 Blood Pressure 156/68 H 12/03/18 09:37 Pulse Oximetry 97 12/03/18 09:37 GENERAL: Chronically ill overweight HEENT: Head atraumatic,EOMI, pupils reactive, face symmetric, [moist] mucous membranes CARDIOVASCULAR: Regular rate and rhythm without murmurs, rubs or gallops. RESPIRATORY: Breath sounds equal bilaterally, no wheezes rales or rhonchi. ABDOMEN: Soft, nontender. Normoactive bowel sounds all 4 quadrants. No guarding or rebound. : No CVA tenderness EXTREMITIES: Normal range of motion, no clubbing or edema. Neurovascularly intact NEUROLOGICAL: Alert and oriented x4.Normal gait and speech. SKIN: Warm, dry, no laceration, no petechiae, no rashes or lesions. [facility] Medical History Arthritis (Chronic) Asthma (Chronic) Degenerative joint disease involving multiple joints (Chronic) Diabetes mellitus (Chronic 2004) 3 para 3 (Resolved) Hyperlipidemia (Chronic) Hypertension (Chronic) Low grade B-cell lymphoma (Chronic) Morbid obesity (Chronic) Peritonitis (Resolved) Surgical History Anesthesia (Resolved) Encounter for insertion of venous access port (Resolved) History of delivery (Resolved 1987) History of cholecystectomy (Resolved 1984) History of hernia repair (Resolved 1988) History of lymph node biopsy (Resolved 07/2013) History of tonsillectomy (Resolved) History of tubal ligation (Resolved) Status post laser cataract surgery of both eyes (Resolved) Family History Mother Cancer Family/Other Leukemia Father No problems noted. Social History marital status: Smoking Status: Former smoker alcohol intake: never substance use type: does not use Family History Mother Cancer Family/Other Leukemia Father No problems noted. Social History marital status: Smoking Status: Former smoker alcohol intake: never substance use type: does not use Course Orders Ordered: ED Orders 12/03/18 09:36 Consult to Respiratory Therapy Evaluate & Treat EKG-12 Lead Stat 12/03/18 09:37 XR chest 1V Stat 12/03/18 09:50 B Type Natriuretic Peptide Stat Complete Blood Count AUTO DIFF Stat Comprehensive Metabolic Panel Stat Magnesium Stat Partial Thromboplastin Time Stat Procalcitonin Stat Prothrombin Time INR Stat Troponin & CK Cardiac Panel Stat Discontinued Medications Albuterol/Ipratropium (Duoneb) 3 ml INH NOW ONE Stop: 12/03/18 09:24 Albuterol/Ipratropium (Duoneb) 3 ml INH NOW ONE Stop: 12/03/18 09:36 Furosemide (Lasix) 40 mg IV NOW ONE Stop: 12/03/18 11:07 Last Admin: 12/03/18 11:24 Dose: 40 mg Documented by: HFARRINGTO Methylprednisolone (Solu-Medrol 125 Mg Vial) 125 mg IV NOW ONE Stop: 12/03/18 09:36 Last Admin: 12/03/18 11:24 Dose: 125 mg Documented by: HFARRINGTO Vital Signs Vital signs: Vital Signs - 8 hr 12/03/18 09:37 12/03/18 10:00 12/03/18 10:56 Temperature 98.7 F Pulse Rate 93 H 84 81 Respiratory Rate 16 20 18 Blood Pressure 156/68 H Blood Pressure [Right Arm] 128/66 Pulse Oximetry 97 93 93 MDM - Asthma Lab Data Attestation: I reviewed the patient's lab results. Result diagrams: 12/03/18 09:50 12/03/18 09:50 Labs: Lab Results 12/03/18 12/03/18 12/03/18 Range/Units 09:50 09:50 09:50 WBC 165.2 H* (4.5-11.0) X10^3/uL RBC 4.41 (4.0-5.2) X10^6/uL Hgb 9.3 L (12.0-16.0) g/dL Hct 31.1 L (36-46) % MCV 70.5 L (80-100) fL MCH 21.1 L (26-34) PG MCHC 30.0 (30-36) % RDW 17.9 H (11.6-14.8) % Plt Count 255 (150-400) X10^3/uL Neut % (Auto) Not Reportable Lymph % (Auto) Not Reportable [place] % (Auto) Not Reportable Eos % (Auto) Not Reportable Baso % (Auto) Not Reportable Lymph # (Auto) Not Reportable [place] # (Auto) Not Reportable Baso # (Auto) Not Reportable Total Counted 100 Seg Neutrophils % 3.0 L (38-70) % Lymphocytes % (Manual) 96.0 H (25-45) % Blast Cells % 1.0 H (-0) % Neutrophils # (Manual) 4956 (6041-7393) /uL Smudge Cells 2+ H RBC Morphology See below Hypochromasia 2+ H Anisocytosis 2+ H Target Cells 1+ H PT 12.3 (10.1-12.7) SECONDS INR 1.1 (0.9-1.3) APTT 23 L (26.4-36.2) SECONDS Sodium (137-145) mmol/L Potassium (3.4-5.1) mmol/L Chloride (98-107) mmol/L Carbon Dioxide (22-32) mmol/L BUN (7-17) mg/dL Creatinine (0.52-1.04) mg/dL Estimated GFR (>60) mL/min BUN/Creatinine Ratio (6-22) Glucose (80-110) mg/dL Calcium (8.4-10.2) mg/dL Magnesium 1.9 (1.6-2.3) mg/dL Total Bilirubin (0.2-1.3) mg/dL AST (14-36) IU/L ALT (9-52) IU/L Alkaline Phosphatase (38-126) U/L Total Creatine Kinase 89 (30-135) U/L CK-MB (CK-2) TNP CK-MB (CK-2) Rel Index TNP Troponin I < 0.012 (0.01-0.034) ng/mL B-Natriuretic Peptide 214 H (<100) Total Protein (6.3-8.2) g/dL Albumin (3.5-5.0) g/dL Globulin (1.7-4.1) g/dL Albumin/Globulin Ratio (1.0-2.8) Procalcitonin (<0.5) ng/mL 12/03/18 12/03/18 Range/Units 09:50 09:50 WBC (4.5-11.0) X10^3/uL RBC (4.0-5.2) X10^6/uL Hgb (12.0-16.0) g/dL Hct (36-46) % MCV (80-100) fL MCH (26-34) PG MCHC (30-36) % RDW (11.6-14.8) % Plt Count (150-400) X10^3/uL Neut % (Auto) Lymph % (Auto) [place] % (Auto) Eos % (Auto) Baso % (Auto) Lymph # (Auto) [place] # (Auto) Baso # (Auto) Total Counted Seg Neutrophils % (38-70) % Lymphocytes % (Manual) (25-45) % Blast Cells % (-0) % Neutrophils # (Manual) (7081-3060) /uL Smudge Cells RBC Morphology Hypochromasia Anisocytosis Target Cells PT (10.1-12.7) SECONDS INR (0.9-1.3) APTT (26.4-36.2) SECONDS Sodium 139 (137-145) mmol/L Potassium 4.6 (3.4-5.1) mmol/L Chloride 102 (98-107) mmol/L Carbon Dioxide 28 (22-32) mmol/L BUN 15 (7-17) mg/dL Creatinine 1.10 H (0.52-1.04) mg/dL Estimated GFR 49.8 L (>60) mL/min BUN/Creatinine Ratio 13.6 (6-22) Glucose 108 (80-110) mg/dL Calcium 9.1 (8.4-10.2) mg/dL Magnesium (1.6-2.3) mg/dL Total Bilirubin 0.6 (0.2-1.3) mg/dL AST 29 (14-36) IU/L ALT 23 (9-52) IU/L Alkaline Phosphatase 66 (38-126) U/L Total Creatine Kinase (30-135) U/L CK-MB (CK-2) CK-MB (CK-2) Rel Index Troponin I (0.01-0.034) ng/mL B-Natriuretic Peptide (<100) Total Protein 6.4 (6.3-8.2) g/dL Albumin 3.9 (3.5-5.0) g/dL Globulin 2.5 (1.7-4.1) g/dL Albumin/Globulin Ratio 1.6 (1.0-2.8) Procalcitonin 0.07 (<0.5) ng/mL Urine Dip Bedside Urine Glucose Negative Bedside Urine Bilirubin - Negative Bedside Urine Ketone - Negative Urine Specific Donovan 1.010 Bedside Urine Occult Blood - Negative Bedside Urine pH 6.5 Bedside Urine Protein - Negative Bedside Urine Urobilinogen - Negative Bedside Urine Nitrite - Negative Bedside Urine Leukocytes - Negative Esterase Imaging Data Chest x-ray: Radiologist's impression: PROCEDURE: XR CHEST 1V INDICATIONS: short of breath TECHNIQUE: One view of the chest was acquired. COMPARISON: [facility], CHEST 2 VIEW, 05/02/2014, 16:25. [facility], CHEST 1 VIEW, 07/17/2014, 16:12. FINDINGS: Surgical changes and devices: None. Lungs and pleura: There are confluent medial right suprahilar opacities. There are linear opacities also noted in the right perihilar region suggestive of atelectasis. No pleural effusions or pneumothorax. Mediastinum: There is right paratracheal soft tissue thickening. Heart size is normal. Bones and chest wall: No suspicious bony lesions. Overlying soft tissues appear unremarkable. IMPRESSION: 1. Right suprahilar confluent opacities medially with right paratracheal soft tissue thickening. The findings are suspicious for a right upper lobe or mediastinal mass or lymphadenopathy but the differential includes right upper lobe consolidation from pneumonia. Further evaluation may be obtained with CT if clinically indicated. Findings discussed with Dr. Martinez on 12/03/18 at 9:40 AM. Dictated by: Polo Mcdonald M.D. on 12/03/2018 at 10:37 ECG Data Attestation: I personally reviewed and interpreted this ECG as follows: Prior ECG tracings: available for review Interpretation: normal sinus rhythm rate 86 p.r. interval 142 QRS [address] changes no T-wave inversion MDM Narrative Medical decision making narrative: the patient is declining any more chemotherapy. Had in fact her last 1 was about a year ago. She adamantly is refusing any sort of CT she understands pulmonary embolism may be present which may lead to . Her WBC is 165 consistent with acute leukemia, she is adamant that she does not want treatment. We discussed hospice however her PCP can not get hospice arranged until she sees the oncologist and she may need more scans. Patient really does not want any more scans. she would like to donate her body to science, to be a cadaver. she says her brother of leukemia with chemotherapy. she denies any fever or productive cough. Will not be putting on her current antibiotics. However she is having some orthopnea and some dyspnea with exertion. Will try her on Lasix for a few days to see if it improves her symptoms. Daughter was present the entire exam and conversation Discharge Plan Departure Patient Disposition: Home Clinical Impression: Acute lymphocytic leukemia Qualifiers: Leukemia Active/Remission status: relapsed Qualified Code(s): C91.02 - Acute lymphoblastic leukemia, in relapse Discharge Date/Time: 12/03/18 11:50 Instructions: Acute Lymphoblastic Leukemia Activity Restrictions/Additional Instructions: *You have been diagnosed with acute lymphoblastic leukemia *What to do: your leukemia is certainly back. you would eat a chest CT scan to determine what is truly happening in her lungs. However if hospice is your goal and comfort is go your goal I strongly encourage you to make an appointment with her primary care physician to talk about your goals *Continue to take medications as directed Lasix 20 mg once a day for the next 3 days--> SENT TO [facility] *Follow up with your primary care provider in 2-3 days *Return to ER if you should have increasing shortness of, chest pain any new, worsening or concerning symptom Prescriptions: New furosemide [Lasix] 20 mg tablet 20 mg PO QAM Qty: 3 RF: 0 No Action Diabetic Shoes TD QDAY Qty: 1 RF: 1 (DME) Glucose: Test Strips 0 .Route .MEDSUPPLY Qty: 1 RF: 5 albuterol sulfate [Ventolin HFA] 90 mcg/actuation HFA aerosol inhaler 1 puff INHALATION Q6H PRN (Reason: shortness of breath) Qty: 6.7 RF: 2 (DME) Powered wheel chair Qty: 1 RF: 0 meloxicam [Mobic] 15 mg tablet 15 mg PO BID Qty: 180 RF: 1 gabapentin [Neurontin] 300 mg capsule 300 mg PO TID Qty: 270 RF: 1 lorazepam 1 mg tablet 1 mg PO BID-TID PRN (Reason: anxiety) Qty: 60 RF: 5 loperamide 2 mg capsule 2 mg PO Q2-4H PRNRF: 0 ondansetron 4 mg tablet,disintegrating 4 mg PO Q6-8H PRN (Reason: nausea and vomiting) Qty: 60 RF: 11 (DME) Depends Incontinence Undergarment XL Qty: 120 RF: 11 Referrals: Eligio Caballero MD [Primary Care Provider] -
[2018-12-03 10:00] VITALS: BP 128/66; PULSE 84; RESP 20; O2SAT 93
[2018-12-03 10:09] LABS: INR 1.1 (0.9-1.3); Prothrombin Time 12.3 SECONDS (10.1-12.7)
[2018-12-03 10:10] LABS: Hematocrit 31.1 % (36-46); Hemoglobin 9.3 g/dL (12.0-16.0); Mean Corpuscular Hemoglobin 21.1 PG (26-34); Mean Corpuscular Volume 70.5 fL (80-100); Platelet Count 255 X10^3/uL (150-400); Red Blood Cell Count 4.41 X10^6/uL (4.0-5.2); Red Cell Distribution Width 17.9 % (11.6-14.8)
[2018-12-03 10:12] LABS: PTT Partial Thromboplastin Tim 23 SECONDS (26.4-36.2)
[2018-12-03 10:19] LABS: Creatine Kinase 89 U/L (30-135); Magnesium 1.9 mg/dL (1.6-2.3)
[2018-12-03 10:20] LABS: Alanine Aminotransferase 23 IU/L (9-52); Albumin 3.9 g/dL (3.5-5.0); Albumin Globulin Ratio 1.6 (1.0-2.8); Alkaline Phosphatase 66 U/L (38-126); BUN Creatinine Ratio 13.6 (6-22); Bilirubin Total 0.6 mg/dL (0.2-1.3); Blood Urea Nitrogen 15 mg/dL (7-17); Calcium 9.1 mg/dL (8.4-10.2); Carbon Dioxide 28 mmol/L (22-32); Chloride 102 mmol/L (98-107); Estimated Glomerular Filt Rate 49.8 mL/min (>60); Globulin 2.5 g/dL (1.7-4.1); Glucose 108 mg/dL (80-110); Sodium 139 mmol/L (137-145); Total Protein 6.4 g/dL (6.3-8.2)
[2018-12-03 10:21] LABS: Add Manual Diff / Slide Review YES; White Blood Cell Count 165.2 X10^3/uL (4.5-11.0)
[2018-12-03 10:23] LABS: B Type Natriuretic Peptide 214 (<100); HEMOLYSIS 64 (0-50)
[2018-12-03 10:24] LABS: Aspartate Aminotransferase 29 IU/L (14-36); Potassium 4.6 mmol/L (3.4-5.1)
[2018-12-03 10:32] LABS: Troponin I < 0.012 ng/mL (0.01-0.034)
[2018-12-03 10:37] LABS: Procalcitonin 0.07 ng/mL (<0.5)
[2018-12-03 10:56] VITALS: PULSE 81; RESP 18; O2SAT 93
[2018-12-03] MEDS: methylPREDNISolone 125 MG/2 ML VIAL IV (11:24)
[2018-12-03] MEDS: FUROSEMIDE 40 MG/4 ML VIAL IV (11:24)
[2018-12-03 11:56] LABS: Anisocytosis 2+; Neutrophils Absolute Manual 4956 /uL (3000-5900); Smudge Cells 2+; Total Cells Counted 100
[2018-12-03 11:57] LABS: Hypochromasia 2+; Target Cells 1+
== END 2018-12-03 11:50 | disposition home or self-care (01) ==
PROVIDERS: Emergency Provider Emergency Medicine; PCP Student in an Organized Health Care Education/Training Program
DX: C91.02 Acute lymphoblastic leukemia, in relapse (principal)
CPT/HCPCS: 36415; 71045; 80053; 81003; 82550; 83735; 83880; 84145; 84484; 85025; 85610; 85730; 93005; 93010; 96374; 96375; 99283; 99285; J1940; J2930

== ENCOUNTER → 2019-05-03 13:20 | Outpatient (ROUT) | payer MEDICARE, MEDICAID, SELFPAY | PROVIDERS: PCP Student in an Organized Health Care Education/Training Program; Visit Provider Family Medicine | DX: C91.10 Chronic lymphocytic leukemia of B-cell type not having achieved remission (principal) | CPT/HCPCS: 80162 ==

== ENCOUNTER → 2019-06-29 16:32 | Outpatient (ROUT) | payer OTHER, MEDICARE, MEDICAID, SELFPAY ==
[2019-06-29 16:50] LABS: Digoxin 1.1 ng/mL (0.8-2.0)
== END ==
PROVIDERS: PCP Student in an Organized Health Care Education/Training Program; Visit Provider Family Medicine
DX: I48.91 Unspecified atrial fibrillation (principal)
CPT/HCPCS: 80162

== ENCOUNTER → 2019-07-17 14:47 | Outpatient (ROUT) | payer OTHER, MEDICARE, MEDICAID, SELFPAY ==
[2019-07-17 15:03] LABS: Digoxin 1.6 ng/mL (0.8-2.0)
== END ==
PROVIDERS: PCP Student in an Organized Health Care Education/Training Program; Visit Provider Family Medicine
DX: C91.10 Chronic lymphocytic leukemia of B-cell type not having achieved remission (principal)
CPT/HCPCS: 80162